=== PATIENT | male | born 1980 | race Hispanic/Latino ===

== ENCOUNTER 2018-04-29 18:24 | Emergency (ER) | payer SELFPAY ==
[~2018-04-29] VITALS: Ht 175.3 cm; Wt 65.0 kg
[~2018-04-29 18:24] MED LIST: ADVIL200 MG OR; NO MEDS
[2018-04-29] MEDS ORDERED: ULTRAM50 M1 PO (18:58)
[2018-04-29] MEDS ORDERED: AMOXICILLIN500 MG PO (18:58)
[2018-04-29 19:00] VITALS: BP 118/64
== END 2018-04-29 19:00 | disposition home or self-care (01) | DRG 159 ==
LOC: ED 18:24
DX: K08.89 Other specified disorders of teeth and supporting structures (principal); K02.9 Dental caries, unspecified

== ENCOUNTER 2019-11-19 07:33 | Emergency (ER) | payer OTHER ==
[~2019-11-19] VITALS: Ht 175.3 cm; Wt 70.5 kg
[~2019-11-19 07:33] MED LIST changes: +AMOXICILLIN500 MG PO; +ULTRAM50 M1 PO
[2019-11-19] MEDS ORDERED: DECADRON4 MG PO ×2 (07:57)
[2019-11-19] MEDS ORDERED: TERBINAFINE250 M1 PO ×2 (07:57)
[2019-11-19 08:12] VITALS: BP 139/81
== END 2019-11-19 08:13 | disposition home or self-care (01) ==
LOC: ED 07:33
DX: B35.4 Tinea corporis (principal); T78.40XA Allergy, unspecified, initial encounter; X58.XXXA Exposure to other specified factors, initial encounter

== ENCOUNTER 2019-11-28 17:34 | Emergency (ER) | payer OTHER ==
[~2019-11-28] VITALS: Ht 175.3 cm; Wt 70.0 kg
[~2019-11-28 17:34] MED LIST changes: +DECADRON4 MG PO; +TERBINAFINE250 M1 PO
[2019-11-28 18:18] LABS: HEMATOCRIT 40.8 % (39.0-50.0); HEMOGLOBIN 13.1 g/dl (14.0-18.0); IMMATURE GRANULOCYTES 0.5 % (0.0-5.0); MEAN CELL VOLUME 83.4 fL CALC (80.0-100.0); MEAN CORPUSCULAR HGB 26.8 pG CALC (26.0-32.0); MEAN CORPUSCULAR HGB CONC 32.1 g/dL CAL (32.0-36.0); NEUT# 5.12 thou/uL (1.82-7.42); RED BLOOD COUNT 4.89 mill/uL (4.70-6.10); RED CELL DISTRI WIDTH 14.5 % (11.5-15.5)
[2019-11-28 18:24] LABS: ALBUMIN 3.8 g/dL (3.2-5.0); BILIRUBIN, TOTAL 0.7 mg/dL (0.0-1.4); CREATININE 1.6 mg/dL (0.7-1.3); POTASSIUM 3.8 mmol/l (3.5-5.1); TOTAL PROTEIN 6.5 g/dL (6.3-8.2)
[2019-11-28 19:16] LABS: URINE BLOOD DIPSTICK NEGATIVE (NEGATIVE); URINE COLOR YELLOW; URINE GLUCOSE - DIPSTICK 100 mg/dL (NEGATIVE); URINE KETONE 15 mg/dL (NEGATIVE); URINE LEUK ESTERASE NEGATIVE (NEGATIVE); URINE NITRITE - DIPSTICK NEGATIVE (Negative); URINE PROTEIN - DIPSTICK 30 mg/dL (NEG-TRACE); URINE SPECIFIC GRAVITY 1.025
[2019-11-28 19:18] LABS: URINE BILIRUBIN - DIPSTICK SMALL (NEGATIVE)
[2019-11-28 19:19] LABS: URINE MUCUS MODERATE hpf (NONE-FEW)
[2019-11-28 20:45] VITALS: BP 118/72
== END 2019-11-28 21:04 | disposition home or self-care (01) ==
LOC: ED 17:34
DX: E86.0 Dehydration (principal); F15.10 Other stimulant abuse, uncomplicated; F17.210 Nicotine dependence, cigarettes, uncomplicated

== ENCOUNTER 2019-12-25 00:27 | Emergency (ER) | payer OTHER ==
[~2019-12-25] VITALS: Ht 175.3 cm; Wt 70.0 kg
[2019-12-25 02:50] VITALS: BP 118/81
== END 2019-12-25 02:50 ==
LOC: ED 00:27
DX: S61.511A Laceration without foreign body of right wrist, initial encounter (principal); J45.909 Unspecified asthma, uncomplicated; F17.200 Nicotine dependence, unspecified, uncomplicated; W25.XXXA Contact with sharp glass, initial encounter; Y93.89 Activity, other specified; Y92.009 Unspecified place in unspecified non-institutional (private) residence as the place of occurrence of the external cause